=== PATIENT | male | born 1965 | race Caucasian/White ===

== ENCOUNTER 2017-07-16 08:50 | Inpatient (IN) | END 2017-07-17 14:45 | disposition home or self-care (01) | DRG 247 | DX: I21.3 ST elevation (STEMI) myocardial infarction of unspecified site (principal); E78.5 Hyperlipidemia, unspecified; I25.10 Atherosclerotic heart disease of native coronary artery without angina pectoris; D72.829 Elevated white blood cell count, unspecified; F17.200 Nicotine dependence, unspecified, uncomplicated; R03.0 Elevated blood-pressure reading, without diagnosis of hypertension ==

== ENCOUNTER 2017-07-27 21:37 | Emergency (ER) | payer OTHER ==
[~2017-07-27] VITALS: Ht 170.2 cm; Wt 84.7 kg
[~2017-07-27 21:37] MED LIST: ASPI-664 PO; ATOR40TA68 PO; CLOP75TA28 PO; METO-335 PO; NICO1PAT6 TRANSDERM
[2017-07-27 21:40] VITALS: Ht 170.2 cm; Wt 84.7 kg
[2017-07-27] MEDS ORDERED: TETRACAINE 0.5% 4 ML OPH LEFT EYE SCH (22:00)
[2017-07-27] MEDS ORDERED: FLUORESCEIN STRIP LEFT EYE ONE (22:00)
--- NOTE | 2017-07-27 22:35 | ERD ---
ER Documentation Chief Complaint Chief Complaint left eye redness/pain since yesterday, possible foreign body, cutting metal HPI 51-year-old male presents here to emergency department for complaints of left eye foreign body sensation sharp pain that started yesterday after cutting metal. Patient feels a foreign body sensation, was tearing. Patient describes the pain as sharp pain, 6/10 scale, denies any problems with vision. Patient denies any purulent discharge from the eye. Patient denies any fever or chills. ROS All systems reviewed and are negative except as per history of present illness. Medications Home Meds Active Scripts Aspirin* (Aspirin* (EC)) 81 Mg Tablet.dr, 81 MG PO DAILY for 30 Days, TAB 11 Refills Prov:WYATT SERVIN 07/17/17 Metoprolol Succinate* (Toprol XL*) 25 Mg Tab.sr.24h, 12.5 MG PO DAILY for 30 Days, 3 Refills 1/2 tab daily Prov:GARETHWYATT Ross 07/17/17 Atorvastatin* (Atorvastatin*) 40 Mg Tablet, 40 MG PO HS for 30 Days, TAB 2 Refills Prov:WYATT SERVIN 07/17/17 Clopidogrel Bisulfate (Clopidogrel) 75 Mg Tablet, 75 MG PO DAILY for 30 Days, TAB 11 Refills Prov:WYATT SERVIN 07/17/17 Nicotine* (Nicotine* Patch) 21 mg/day Patch, 1 PATCH TRANSDERM DAILY for 30 Days Prov:WYATT SERVIN 07/17/17 Allergies Allergies: Coded Allergies: No Known Allergy (Unverified , 07/27/17) PMhx/Soc History of Surgery: Yes (stent placement 07/25) Anesthesia Reaction: No Hx Neurological Disorder: No Hx Respiratory Disorders: No Hx Cardiac Disorders: Yes (DYSLIPIDIMIA) Hx Psychiatric Problems: No Hx Miscellaneous Medical Probl: No Hx Alcohol Use: No Hx Substance Use: No Hx Tobacco Use: Yes Smoking Status: Former smoker FmHx Family History: No coronary disease, No diabetes, No other Physical Exam Vitals Vital Signs Date Time Temp Pulse Resp B/P Pulse Ox O2 Delivery O2 Flow Rate FiO2 07/27/17 21:40 96.8 65 20 102/62 97 Physical Exam GENERAL: The patient is well developed and appropriate for usual state of health, in no apparent distress. CHEST: Clear to auscultation bilaterally. There are no rales, wheezes or rhonchi. HEART: Regular rate and rhythm. No murmurs, clicks, rubs or gallops. No S3 or S4. ABDOMEN: Soft, nontender and nondistended. Good bowel sounds. No rebound or guarding. No gross peritonitis. No gross organomegaly or masses. No Mancuso sign or McBurney point tenderness. BACK: No midline or flank tenderness. EXTREMITIES: Equal pulses bilaterally. There is no peripheral clubbing, cyanosis or edema. No focal swelling or erythema. Full range of motion. Grossly neurovascularly intact. NEURO: Alert and oriented. Cranial nerves 2-12 intact. Motor strength in all 4 extremities with 5/5 strength. Sensation grossly intact. Normal speech and gait. SKIN: There is no apparent rash or petechia. The skin is warm and dry. HEMATOLOGIC AND LYMPHATIC: There is no evidence of excessive bruising or lymphedema. No gross cervical, axillary, or inguinal lymphadenopathy. Results 24 hrs Current Medications Medications (Trade) Dose Ordered Sig/Reymundo Route PRN Reason Start Time Stop Time Status Last Admin Dose Admin Tetracaine HCl (Tetracaine 0.5% Steri-Unit Lizet) 1 drop ONCE LEFT EYE 07/27/17 22:00 Fluorescein Sodium (Sdcvd-Q-Yousl) 1 strip ONCE ONCE LEFT EYE 07/27/17 22:00 07/27/17 22:01 DC Procedures/MDM Procedure Note: After obtaining informed consent, the right eye was stained using fluorescein dye and numbed with tetracaine ophthalmic solution. After staining the eye, A Wood's lamp was used to evaluate the eye. There is foreign body noted in the right lower quadrant of the right eye. This was removed without any difficulty. No corneal abrasions noted. Patient tolerated procedure well. Medical decision making: Patient symptoms was likely is consistent with a foreign body in the right eye, it was removed without any difficulty. There is an abrasion that was left in it after removal. Patient was advised to see eye doctor for further evaluation and management. Patient was given prescription for Vigamox ophthalmic solution, is advised to follow-up with eye doctor within 2-3 days. Patient was advised to return to emergency department for any worsening symptoms. Disposition: Home. Stable. Departure Diagnosis: Primary Impression: Eye foreign body Encounter type: initial encounter Laterality: right Qualified Code: T15.91XA - Foreign body of right eye, initial encounter Condition: Stable Patient Instructions: Corneal Foreign Body, Removed, W/ Rusbry Ring PANCHITO JUDD NP Jul 27, 2017 22:34
[2017-07-27] MEDS ORDERED: VIGA RIGHT EYE (22:36)
== END 2017-07-27 22:40 | disposition home or self-care (01) ==
LOC: FTE 21:37
DX: T15.01XA Foreign body in cornea, right eye, initial encounter (principal); X58.XXXA Exposure to other specified factors, initial encounter; Y92.9 Unspecified place or not applicable; Z79.82 Long term (current) use of aspirin; Z87.891 Personal history of nicotine dependence; Z98.61 Coronary angioplasty status